=== PATIENT | female | born 1960 | race African-American/Black ===

== ENCOUNTER 2018-03-07 08:07 | Emergency (ER) | payer SELFPAY ==
[~2018-03-07] VITALS: Ht 167.6 cm; Wt 69.0 kg
[2018-03-07] MEDS ORDERED: ACETAMINOPHEN 325MG TABLET PO ONE (08:45)
[2018-03-07] MEDS ORDERED: KETOROLAC 30MG/ML VIAL IM ONE (08:45)
[2018-03-07 08:50] VITALS: BP 127/68
== END 2018-03-07 09:39 | disposition home or self-care (01) ==
LOC: ER 09:22
DX: S66.919A Strain of unspecified muscle, fascia and tendon at wrist and hand level, unspecified hand, initial encounter (principal); S29.012A Strain of muscle and tendon of back wall of thorax, initial encounter; W01.0XXA Fall on same level from slipping, tripping and stumbling without subsequent striking against object, initial encounter; Y93.89 Activity, other specified; Y92.9 Unspecified place or not applicable
CPT/HCPCS: 96372; 99283; J1885

== ENCOUNTER 2019-09-08 09:00 | Emergency (ER) | payer MEDICAID ==
[~2019-09-08] VITALS: Ht 160 cm; Wt 55.0 kg
[2019-09-08 09:12] VITALS: BP 139/72
[2019-09-08] MEDS ORDERED: LIDOCAINE HCL/PF 1% 10 MG/ML 5ML VIAL IJ ONE (09:30)
== END 2019-09-08 10:19 | disposition home or self-care (01) ==
LOC: ER 09:00
DX: L02.414 Cutaneous abscess of left upper limb (principal); F12.90 Cannabis use, unspecified, uncomplicated
CPT/HCPCS: 10060; 99283; J3490; Z7610

== ENCOUNTER 2019-09-12 12:42 | Emergency (ER) | payer MEDICAID ==
[~2019-09-12] VITALS: Ht 167.6 cm; Wt 61.0 kg
[2019-09-12 12:53] VITALS: BP 148/96
== END 2019-09-12 14:38 | disposition home or self-care (01) ==
LOC: ER 12:42
DX: Z48.00 Encounter for change or removal of nonsurgical wound dressing (principal); L02.414 Cutaneous abscess of left upper limb; J06.9 Acute upper respiratory infection, unspecified
CPT/HCPCS: 99283